=== PATIENT | male | born 1970 | race Two or more races ===

== ENCOUNTER 2017-05-30 20:40 | Inpatient (IN) | payer MEDICAID ==
[~2017-05-30] VITALS: Ht 182.9 cm; Wt 70.3 kg
[2017-05-30 21:00] VITALS: BP 110/77
[2017-05-30] MEDS ORDERED: Naproxen 500mg tab ORAL ONE (21:15)
[2017-05-30] MEDS ORDERED: Acetaminophen 500mg (ES) tab ORAL ONE (21:15)
[2017-05-30 21:36] LABS: APPEARANCE,URINE CLEAR; BILIRUBIN, URINE NEGATIVE (NEGATIVE); GLUCOSE, URINE (UA) NEGATIVE (NEGATIVE); KETONES,URINE NEGATIVE (NEGATIVE); LEUKOCYTE ESTERASE ,URINE 1+ (NEGATIVE); NITRITE,URINE NEGATIVE (NEGATIVE); PH,URINE 8 (4.5-8.0); PROTEIN,URINE 2+ (NEGATIVE); UROBILINOGEN,URINE NORMAL MG/DL (0.0-1.0)
[2017-05-30 21:37] LABS: COLOR,URINE YELLOW
[2017-05-30 21:39] LABS: BASOPHILS % (AUTO) 0.9 % (0.0-2.0); HEMATOCRIT 42.7 % (42.0-52.0); HEMOGLOBIN 14.8 G/DL (14.2-18.0); LYMPHOCYTES % (AUTO) 24.5 % (20.0-45.0); MEAN CORPUSCULAR VOLUME 95 FL (80-99); MONOCYTES % (AUTO) 18.1 % (1.0-10.0); NEUTROPHILS % (AUTO) 56.4 % (45.0-75.0); PLATELET COUNT 196 K/UL (150-450); RED BLOOD COUNT 4.52 M/UL (4.70-6.10); RED CELL DISTRIBUTION WIDTH 9.9 % (11.6-14.8); WHITE BLOOD COUNT 5.8 K/UL (4.8-10.8)
[2017-05-30 21:51] LABS: ANION GAP 9 mmol/L (5-15); BLOOD UREA NITROGEN 15 mg/dL (7-18); CALCIUM 9.2 MG/DL (8.5-10.1); CARBON DIOXIDE 29 MMOL/L (21-32); CHLORIDE 96 MMOL/L (98-107); CREATININE 1.2 MG/DL (0.55-1.30); POTASSIUM 4.2 MMOL/L (3.5-5.1); SODIUM 134 MMOL/L (136-145)
[2017-05-30 22:06] LABS: ALANINE AMINOTRANSFERASE 27 U/L (12-78); ALBUMIN/GLOBULIN RATIO 1.1 (1.0-2.7); ALKALINE PHOSPHATASE 68 U/L (46-116); ASPARTATE AMINO TRANSFERASE 33 U/L (15-37); BILIRUBIN,TOTAL 0.3 MG/DL (0.2-1.0); CKMB < 0.5 NG/ML (0.0-3.6); CREATINE KINASE 102 U/L (26-308)
--- NOTE | 2017-05-30 22:13 | Emergency Room Report ---
History of Present Illness General Chief Complaint: Flu Like Symptoms Source: Patient Present Illness HPI Patient is a 47-year-old male who presented after increased fever and vomiting. Patient reported having gradual onset of symptoms. He reports being sick for approximately 5 days. He reports having some cough which is nonproductive. Patient states that he had been having chills her several days. Allergies: Coded Allergies: No Known Allergies (Unverified , 05/30/17) Patient History Reviewed Nursing Documentation: PMH: Agreed, PSxH: Agreed Nursing Documentation-PMH Hx Asthma: Yes Review of Systems All Other Systems: negative except mentioned in HPI Physical Exam Vital Signs Date Time Temp Pulse Resp B/P (MAP) Pulse Ox O2 Delivery O2 Flow Rate FiO2 05/30/17 20:43 102.6 98 18 110/77 97 Room Air 102.6 Sp02 EP Interpretation: reviewed, normal General Appearance: normal inspection, well appearing, no apparent distress, alert Head: atraumatic ENT: normal ENT inspection, hearing grossly normal, normal voice, pharyngeal erythema Neck: normal inspection, full range of motion, supple, no bony tend Respiratory: normal inspection, lungs clear, normal breath sounds, no respiratory distress, no retraction, no wheezing Cardiovascular #1: regular rate, rhythm, no edema Gastrointestinal: normal inspection, normal bowel sounds, soft, no guarding, no hernia, tenderness - suprapubic mild Genitourinary: no CVA tenderness Musculoskeletal: normal inspection, back normal, normal range of motion Neurologic: normal inspection, alert, responsive, speech normal Psychiatric: normal inspection, judgement/insight normal, mood/affect normal Skin: normal inspection, normal color, no rash Medical Decision Making Diagnostic Impression: Primary Impression: Febrile illness, acute Additional Impression: UTI (urinary tract infection) ER Course Patient presented for fever. Differential diagnosis included wasn't limited to pneumonia, urinary tract infection, drug fever, allergic reaction, sepsis, cholecystitis, among others.Laboratory testing was notable for elevated lactic acid level. Patient started IV fluids and IV antibiotics for possible urinary infection . A CT abdomen pelvis or by radiology showed no evidence of acute appendicitis diverticulitis. Patient was given IV Rocephin. Dr. Michael Andujar was contacted for inpatient management Labs Test 05/30/17 21:15 05/30/17 21:18 Urine Color Yellow Urine Appearance Clear Urine pH 8 (4.5-8.0) Urine Specific Finger 1.010 (1.005-1.035) Urine Protein 2+ (NEGATIVE) Urine Glucose (UA) Negative (NEGATIVE) Urine Ketones Negative (NEGATIVE) Urine Occult Blood 1+ (NEGATIVE) Urine Nitrite Negative (NEGATIVE) Urine Bilirubin Negative (NEGATIVE) Urine Urobilinogen Normal MG/DL (0.0-1.0) Urine Leukocyte Esterase 1+ (NEGATIVE) Urine RBC 2-4 /HPF (0 - 0) Urine WBC 2-4 /HPF (0 - 0) Urine Squamous Epithelial Cells None /LPF (NONE/OCC) Urine Bacteria Occasional /HPF (NONE) HIV (1&2) Antibody Rapid Negative (NEGATIVE) White Blood Count 5.8 K/UL (4.8-10.8) Red Blood Count 4.52 M/UL (4.70-6.10) Hemoglobin 14.8 G/DL (14.2-18.0) Hematocrit 42.7 % (42.0-52.0) Mean Corpuscular Volume 95 FL (80-99) Mean Corpuscular Hemoglobin 32.8 PG (27.0-31.0) Mean Corpuscular Hemoglobin Concent 34.7 G/DL (32.0-36.0) Red Cell Distribution Width 9.9 % (11.6-14.8) Platelet Count 196 K/UL (150-450) Mean Platelet Volume 8.4 FL (6.5-10.1) Neutrophils (%) (Auto) 56.4 % (45.0-75.0) Lymphocytes (%) (Auto) 24.5 % (20.0-45.0) Monocytes (%) (Auto) 18.1 % (1.0-10.0) Eosinophils (%) (Auto) 0.0 % (0.0-3.0) Basophils (%) (Auto) 0.9 % (0.0-2.0) Prothrombin Time 10.4 SEC (9.30-11.50) Prothromb Time International Ratio 1.0 (0.9-1.1) Activated Partial Thromboplast Time 31 SEC (23-33) Sodium Level 134 MMOL/L (136-145) Potassium Level 4.2 MMOL/L (3.5-5.1) Chloride Level 96 MMOL/L (98-107) Carbon Dioxide Level 29 MMOL/L (21-32) Anion Gap 9 mmol/L (5-15) Blood Urea Nitrogen 15 mg/dL (7-18) Creatinine 1.2 MG/DL (0.55-1.30) Estimat Glomerular Filtration Rate > 60 mL/min (>60) Glucose Level 110 MG/DL (74-106) Lactic Acid Level 2.30 mmol/L (0.66-2.22) Calcium Level 9.2 MG/DL (8.5-10.1) Total Bilirubin 0.3 MG/DL (0.2-1.0) Aspartate Amino Transf (AST/SGOT) 33 U/L (15-37) Alanine Aminotransferase (ALT/SGPT) 27 U/L (12-78) Alkaline Phosphatase 68 U/L (46-116) Total Creatine Kinase 102 U/L (26-308) Creatine Kinase MB < 0.5 NG/ML (0.0-3.6) Creatine Kinase MB Relative Index 0.4 Troponin I 0.000 ng/mL (0.000-0.056) Total Protein 7.6 G/DL (6.4-8.2) Albumin 4.0 G/DL (3.4-5.0) Globulin 3.6 g/dL Albumin/Globulin Ratio 1.1 (1.0-2.7) EKG Diagnostic Results Rate: normal - 73 Rhythm: NSR ST Segments: no acute changes Last Vital Signs Date Time Temp Pulse Resp B/P (MAP) Pulse Ox O2 Delivery O2 Flow Rate FiO2 05/30/17 21:32 102.6 05/30/17 20:43 98 18 110/77 97 Room Air Status: improved Disposition: PLACE IN OBSERVATION Condition: Serious Scripts No Active Prescriptions or Reported Meds Referrals: SMILEY CHRISTIE (PCP) David Gonzalez May 30, 2017 22:13
[2017-05-30] MEDS ORDERED: cefTRIAXone 1 GM in NS 55 ML IVPB ONE (22:15)
[2017-05-30 23:00] VITALS: BP 106/71
[2017-05-31] VITALS (9 sets, daily range): BP systolic 90–105; BP diastolic 55–72
[2017-05-31] MEDS ORDERED: Guaifenesin/DM 10ml syrup ORAL PRN (08:30)
[2017-05-31] MEDS: Albuterol ud Inhalation HHN SCH ×5 (08:30→23:49)
[2017-05-31] MEDS: Heparin 5000 units/ml inj SUBQ SCH ×3 (09:00→21:00)
--- NOTE | 2017-05-31 09:52 | Diagnostic Imaging Report ---
Indication: Reason For Exam: SOB Technique: One view of the chest Comparison: none Findings: Lungs are mildly hyperinflated. Lungs and pleural spaces are clear. The heart size is normal. Impression: No acute process Mild hyperinflation, could indicate asthma or COPD changes
--- NOTE | 2017-05-31 10:19 | Diagnostic Imaging Report ---
Clinical Indication: Abdominal pain, nausea, vomiting Technique: No oral contrast utilized, per emergency room physician request IV administration nonionic contrast. Venous phase spiral acquisition obtained through the abdomen and pelvis. Multiplanar reconstructions were generated. Total dose length product 492.4 mGycm. CTDIvol(s) 8.93 mGy. Dose reduction achieved using automated exposure control Comparison: none Findings: Lack of enteric contrast limits assessment of the GI tract. The appendix is not definitely identified, but no findings to suggest acute appendicitis are evident. No evidence of diverticulosis or diverticulitis. No small bowel distention. No free or loculated intraperitoneal air or fluid. The distal esophagus, stomach, duodenum are unremarkable. The liver demonstrates a cyst in segment 5 as well as multiple subcentimeter low-attenuation lesions which are too small to characterize. The gallbladder, bile ducts, pancreas, spleen, adrenals, kidneys are unremarkable. No retroperitoneal or mesenteric mass or adenopathy. No pelvic mass or adenopathy. A non-calcified 5 mm solid nodule in the subpleural left lower lobe is indeterminate. There is amount of atelectasis at the right lung base. The bones are unremarkable. Impression: No acute abnormality Right lobe liver cyst and multiple subcentimeter low-attenuation liver lesions which are too small to characterize. Most likely benign simple cysts or bile hamartomas. No further follow-up necessary Indeterminate solid pulmonary nodule measuring 5 mm. In a low-risk patient with a solid nodule <6 mm, recommend no follow-up. In a high-risk patient, CT at 12 months is optional with stronger consideration if there is suspicious nodule morphology and/or upper lobe location. Conradhoalethea H, et al. Guidelines for Management of Incidental Pulmonary Nodules Detected on CT Images: From the Fleischner Society 2017. Radiology. 2017 Mauricio;284(1):228-243. This agrees with the preliminary interpretation provided overnight by [facility] teleradiology service. The CT scanner at [facility] is accredited by the [employer] and the scans are performed using protocols designed to limit radiation exposure to as low as reasonably achievable to attain images of sufficient resolution adequate for diagnostic evaluation.
[2017-05-31] MEDS: Oseltamivir 75mg cap ORAL SCH ×2 (10:33→17:32)
--- NOTE | 2017-05-31 13:39 | Consultation ---
Consult Note Consult Note ID DIC # [id number] GREG HALL M.D. May 31, 2017 13:39
[2017-05-31] MEDS ORDERED: Azithromycin 500 MG in D5W 275 ML IV SCH (15:00)
--- NOTE | 2017-05-31 17:30 | Consultation ---
DATE OF CONSULTATION: 05/31/2017 PULMONARY CONSULTATION CONSULTING PHYSICIAN: Roderick Funes M.D. REFERRING PHYSICIAN: Michael Andujar D.O. REASON FOR CONSULTATION: Shortness of breath and congestion. HISTORY OF PRESENT ILLNESS: The patient is a 47-year-old male, presents with flu-like symptoms. The patient with noted cough, difficult to mobilize secretions. The patient reports to be ill for the past five days. The patient noticed the cough is nonproductive and he has been having chills. PAST MEDICAL HISTORY: Notable for childhood asthma. MEDICATIONS: Reviewed. ALLERGIES: Reviewed. SOCIAL HISTORY: The patient is a past smoker. PHYSICAL EXAMINATION: GENERAL: A well-developed male, comfortable at present, no significant distress. VITAL SIGNS: T-max 100.2 degrees. Vital signs, otherwise stable. Blood pressure 90/60. HEENT: Negative. NECK: Supple. LUNGS: Fairly clear overall, symmetric. CARDIAC: Normal S1 and S2. Regular rate and rhythm. ABDOMEN: Soft, nontender, and nondistended. EXTREMITIES: No cyanosis or clubbing. No significant edema. NEUROLOGIC: He appears to be nonfocal. LABORATORY DATA: Otherwise reviewed. IMPRESSION: Fever, possible underlying respiratory infection. RECOMMENDATIONS: Supportive care. IV hydration. Tamiflu for influenza B positive and monitor clinically for change and recommendations. Roderick Funes M.D. DR: EVANGELINA JOB#: [id number] CC:
[2017-05-31] MEDS ORDERED: cefTRIAXone 1 GM in NS 55 ML IVPB SCH (23:00)
--- NOTE | 2017-05-31 23:15 | Consultation ---
DATE OF CONSULTATION: 05/31/2017 INFECTIOUS DISEASE CONSULTATION CONSULTING PHYSICIAN: Pedro Cueva M.D. REQUESTING PHYSICIAN: Michael Andujar D.O. REASON FOR CONSULTATION: Evaluation of patient for pneumonia, influenza, and bronchitis. HISTORY OF PRESENT ILLNESS: The patient is a 47-year-old male with past medical history significant for asthma who was admitted to this medical center for fever, cough, and chest congestion. The patient's influenza screening came positive for influenza B. Infectious Disease consultation has been requested for further evaluation of the patient's antibiotic management. PAST MEDICAL HISTORY: Asthma. MEDICATIONS: Rocephin and Tamiflu day #1. ALLERGIES: No known drug allergies. SOCIAL HISTORY: No history of drug abuse or alcohol abuse. FAMILY HISTORY: Not contributing. REVIEW OF SYSTEMS: HEENT: No recent change in vision or hearing. PULMONARY: As mentioned above. CARDIOVASCULAR: No chest pain. GASTROINTESTINAL/ABDOMEN: No nausea or vomiting. GENITOURINARY: No dysuria. PHYSICAL EXAMINATION: VITAL SIGNS: Temperature 102.6 degrees, pulse 86, respiratory rate 18, and blood pressure 97/59. HEENT: No pale conjunctivae. No icterus. NECK: No lymphadenopathy. CHEST: Coarse breathing sounds. HEART: S1 and S2. ABDOMEN: Soft and nontender. EXTREMITIES: No cyanosis at this time. NEUROLOGIC: Awake and alert. LABORATORY AND DIAGNOSTIC DATA: White blood cells 5.8, hemoglobin 14.8 and platelets 196,000. UA unremarkable. BUN and creatinine within normal range. Liver function tests within normal range. Influenza screen positive for influenza B. CT scan of the abdomen, no acute abnormality. Chest x-ray, no acute process, mild hyperinflation. ASSESSMENT: The patient is a 47-year-old male with; 1. Fever. 2. Influenza B. 3. Bronchitis. PLAN: 1. We will start the patient on Zithromax and continue the patient on Tamiflu. 2. Monitor CBC. 3. Monitor BMP. 4. Monitor chest x-ray. 5. Monitor blood and sputum culture. 6. Based on the patient's clinical course and laboratories, we will do further recommendations. Thank you, Dr. Michael Andujar, for allowing me to participate in the care of this patient. I will follow the patient with you during this hospitalization. Pedro Cueva M.D. DR: JEREMY JOB#: [id number] CC:
--- NOTE | 2017-06-01 | History and Physical Report ---
DATE OF ADMISSION: 05/31/2017 TIME: 3 p.m. CONSULTANTS: 1. Roderick Funes M.D. 2. Pedro Cueva M.D. CHIEF COMPLAINT: Fever, cough, UTI, and bronchitis. HISTORY OF PRESENT ILLNESS: The patient is a 47-year-old male, who lives at home, presents to [place] [facility] last night with increased shortness of breath, coughing, and fever for a week, was diagnosed with bronchitis, UTI, fever and possible sepsis, and started on Rocephin, admitted to telemetry for further care. Currently, calm in bed, slight short of breath and coughing. No complaint. PAST MEDICAL HISTORY: Fever, otherwise none. PAST SURGICAL HISTORY: None. MEDICATIONS: Ceftriaxone, azithromycin, Tamiflu, albuterol, and . ALLERGIES: Denies. SOCIAL HISTORY: Positive smoke. Occasional alcohol. No intravenous drug use. FAMILY HISTORY: Noncontributory. REVIEW OF SYSTEMS: No chest pain. Slight short of breath. No nausea, vomiting, or diarrhea. PHYSICAL EXAMINATION: GENERAL: Calm in bed, oriented x3, no acute distress. VITAL SIGNS: Temperature is 98 degrees, pulse 54, respiratory rate 17, blood pressure 93/59. CARDIOVASCULAR: No murmur. LUNGS: Poor air exchange. ABDOMEN: . EXTREMITIES: No cyanosis or edema. NEUROLOGIC: The patient moves all extremities, slightly weak. LABORATORY AND DIAGNOSTIC DATA: CBC is normal. BMP shows sodium 134, chloride 96, and glucose 110. Lactic acid 2.3 and troponin 0.0, otherwise CMP is normal. INR is 1.0 and PTT is 31. Urinalysis, 2+ protein, 1+ occult blood, and 1+ leukocyte esterase. ASSESSMENT: 1. Fever. 2. Cough. 3. Bronchitis. 4. Urinary tract infection. PLAN: 1. Continue pre-medications. 2. O2 and pulmonary treatment. 3. Antibiotics per Infectious Disease. 4. Dietary followup. 5. CBC and BMP in the morning. 6. Dr. Funes and Dr. Cueva to consult. Michael Andujar D.O. DR: PARRIS JOB#: [id number] CC:
[2017-06-01] MEDS: Albuterol ud Inhalation HHN SCH ×2 (03:57→07:00)
[2017-06-01 07:00] LABS: HEMATOCRIT 36.7 % (42.0-52.0); HEMOGLOBIN 12.9 G/DL (14.2-18.0); MEAN CORPUSCULAR VOLUME 94 FL (80-99); PLATELET COUNT 159 K/UL (150-450); RED BLOOD COUNT 3.89 M/UL (4.70-6.10); RED CELL DISTRIBUTION WIDTH 9.9 % (11.6-14.8); WHITE BLOOD COUNT 2.8 K/UL (4.8-10.8)
--- NOTE | 2017-06-01 07:10 | General Progress Note ---
Assessment/Plan Problem List: (1) Cough ICD Codes: R05 - Cough SNOMED: 43556623 (2) Bronchitis ICD Codes: J40 - Bronchitis, not specified as acute or chronic SNOMED: 18209880 (3) Febrile ICD Codes: R50.9 - Fever, unspecified SNOMED: 218259214 (4) UTI (urinary tract infection) ICD Codes: N39.0 - Urinary tract infection, site not specified SNOMED: 67390813 (5) Febrile illness, acute ICD Codes: R50.9 - Fever, unspecified SNOMED: 795165265 Status: unchanged Assessment/Plan o2 pulm tx prn abx cbc bmp am Subjective Constitutional: Reports: weakness Allergies: Coded Allergies: No Known Allergies (Unverified , 05/30/17) All Systems: reviewed and negative except above Subjective sleepy calm in bed Objective Last 24 Hour Vital Signs Date Time Temp Pulse Resp B/P (MAP) Pulse Ox O2 Delivery O2 Flow Rate FiO2 06/01/17 04:00 62 06/01/17 03:57 Room Air 06/01/17 03:57 Room Air 06/01/17 00:00 61 05/31/17 23:57 64 18 99 Room Air 21 05/31/17 23:49 63 18 96 Room Air 21 05/31/17 20:00 58 05/31/17 20:00 98.6 63 20 91/61 100 Room Air 98.6 05/31/17 19:59 Room Air 05/31/17 19:59 Room Air 05/31/17 16:00 57 05/31/17 16:00 97.3 68 16 105/58 100 Room Air 97.3 05/31/17 15:00 58 18 99 Room Air 21 05/31/17 15:00 21 05/31/17 14:45 58 18 98 Room Air 21 05/31/17 14:45 54 18 Room Air 21 05/31/17 12:00 60 05/31/17 12:00 98.2 64 18 101/68 99 Room Air 98.2 05/31/17 08:05 98.4 54 17 97/59 99 Room Air 98.4 05/31/17 08:00 98.1 56 18 103/57 98 Room Air 98.1 05/31/17 08:00 57 05/31/17 07:54 98.4 54 17 97/59 99 Room Air 98.4 Intake and Output 05/31/17 06/01/17 19:00 07:00 Intake Total 1070 ml 1100 ml Output Total 1375 ml Balance 1070 ml -275 ml Intake Oral 240 ml IV Total 830 ml 1100 ml Output Urine Total 1375 ml # Voids 2 Laboratory Tests 06/01/17 05:40: White Blood Count [Pending], Red Blood Count [Pending], Hemoglobin [Pending], Hematocrit [Pending], Mean Corpuscular Volume [Pending], Mean Corpuscular Hemoglobin [Pending], Mean Corpuscular Hemoglobin Concent [Pending], Red Cell Distribution Width [Pending], Platelet Count [Pending], Mean Platelet Volume [ Pending], Neutrophils (%) (Auto) [Pending], Lymphocytes (%) (Auto) [Pending], Monocytes (%) (Auto) [Pending], Eosinophils (%) (Auto) [Pending], Basophils (%) (Auto) [Pending], Sodium Level [Pending], Potassium Level [Pending], Chloride Level [Pending], Carbon Dioxide Level [Pending], Blood Urea Nitrogen [Pending], Creatinine [Pending], Estimat Glomerular Filtration Rate [Pending], Glucose Level [Pending], Calcium Level [Pending] Height (Feet): 6 Height (Inches): 0.00 Weight (Pounds): 155 General Appearance: lethargic EENT: normal ENT inspection Neck: normal alignment Cardiovascular: normal peripheral pulses, normal rate, regular rhythm Respiratory/Chest: decreased breath sounds Abdomen: normal bowel sounds, non tender, soft Extremities: normal inspection Edema: no edema noted Arm (L), no edema noted Arm (R), no edema noted Leg (L), no edema noted Leg (R), no edema noted Pedal (L), no edema noted Pedal (R), no edema noted Generalized Neurologic: motor weakness Skin: normal pigmentation, warm/dry LORENA LUGO Jun 01, 2017 07:10
[2017-06-01 07:14] LABS: ANION GAP 7 mmol/L (5-15); BLOOD UREA NITROGEN 9 mg/dL (7-18); CALCIUM 8.5 MG/DL (8.5-10.1); CARBON DIOXIDE 28 MMOL/L (21-32); CHLORIDE 103 MMOL/L (98-107); CREATININE 0.8 MG/DL (0.55-1.30); SODIUM 138 MMOL/L (136-145)
[2017-06-01 08:00] VITALS: BP 109/64
[2017-06-01] MEDS: Oseltamivir 75mg cap ORAL SCH (08:52)
[2017-06-01] MEDS: Heparin 5000 units/ml inj SUBQ SCH (09:00)
[2017-06-01] MEDS ORDERED: 1/2 NS 1000ml IV ONE (09:59)
[2017-06-01] MEDS ORDERED: Azithromycin 250mg tab ORAL SCH (10:00)
--- NOTE | 2017-06-01 11:30 | Cardiology Report ---
APPROVED REPORT EKG Measurement Heart [id number] Normal sinus rhythm Normal ECG
--- NOTE | 2017-06-04 12:41 | Discharge Summary ---
Discharge Summary Hospital Course Date of Admission May 31, 2017 at 03:57 Date of Discharge Jun 01, 2017 at 10:00 Admitting Diagnosis acute febrile illness HPI Ubaldo Ferrari is a 47 year old male who was admitted on May 31, 2017 at 03:57 for Acute Febrile Illness Hospital Course dc summary #[id number] Discharge Discharge Disposition Patient signed AMA Discharge Diagnoses: Discharge Instructions Discharge Instructions Special Instructions I have been assigned to complete a D/C Summary on this account. I was not involved in the patient management Yara Mcclelland NP (Vanchtein) Jun 04, 2017 12:41
--- NOTE | 2017-06-04 23:15 | Discharge Summary 2 SIG ---
DATE OF ADMISSION: 05/31/2017 DATE OF SIGNING AGAINST MEDICAL ADVICE: 06/01/2017 REASON FOR ADMISSION: 47-year-old male, presented to emergency department with fever and vomiting. He reported being sick for five days. Workup in the emergency room revealed fever -102.6. Pulse oximetry was stable on room air. The patient complained of cough and congestion. Urinalysis revealed occasional bacteria, but negative for nitrite and +1 leukocyte esterase. Influenza screen test was positive for influenza type B. The patient admitted with fever, influenza type B, bronchitis, possible UTI. HOSPITAL COURSE: The patient admitted. The patient started on empiric antibiotic and Tamiflu. ID consult was requested. Blood culture, preliminary negative. Lactic acid -2.3. Dealer Compliance Representative had seen and evaluated the patient. Chest x-ray revealed no acute cardiopulmonary pathology. The patient had bronchitis and possibly underlying other infection. Antibiotic were continued. Supplemental oxygen and pulmonary toilet were on board as needed, however, pulse oximetry was stable on room air. Infectious Disease doctor followed. Antibiotics provided as per ID specialist management. The patient had no leukocytosis. Stable hemoglobin and hematocrit. Troponin negative. Next day, the patient felt better. He refused to check his temperature. He stated he was feeling better and wanted to go home. He declined to sign against medical advice form. The risks and consequences of signing against medical advice were discussed with the patient. The patient verbalized understanding, declined to sign the form and left. FINAL DIAGNOSES: 1. Influenza type B. 2. Bronchitis. 3. Fever. Michael Andujar D.O. I have been assigned to dictate discharge summary on this account and I was not involved in the patient's management. Yaar Rodriguezleslie N.P. DR: Gail JOB#: [id number] CC: OLE
== END 2017-06-01 10:00 | disposition left against medical advice (07) | DRG 113 ==
LOC: EMR 21:26 → 2E 05-31 03:57 → EDBEDREQ 05-31 05:36
DX: J10.1 Influenza due to other identified influenza virus with other respiratory manifestations (principal); N39.0 Urinary tract infection, site not specified; J40 Bronchitis, not specified as acute or chronic
CPT/HCPCS: 36415; 71045; 74177; 80048; 80053; 81003; 82550; 82553; 83605; 84484; 85007; 85025; 85610; 85730; 86703; 86710; 87040; 93005; 94640; 94664; 99285; J2405